=== PATIENT | female | born 1990 | race Two or more races ===

== ENCOUNTER 2018-10-16 19:17 | Emergency (ER) | payer MEDICAID, OTHER ==
[~2018-10-16] VITALS: Ht 162.6 cm; Wt 62.1 kg
[2018-10-16 19:35] VITALS: BP 118/73
--- NOTE | 2018-10-16 20:02 | Emergency Room Report ---
History of Present Illness General Chief Complaint: Fever Source: Patient Present Illness HPI 28 -year-old female presents to the emergency department complaining of 8 out of 10 severity body- aches, fatigue, fevers, chills, sore throat, nasal congestion and cough 3 days. Patient measured temperature at home at 103 which responded well to Motrin. Patient reports she took Motrin prior to arrival. Patient denies recent travel or ill contacts she also denies receiving the flu vaccination. Denies ear pain, neck pain/stiffness, irritability, photophobia dehydration, N/V/D. Denies Cp, Palpitations, LOC, AMS , seizures, paresthesias, or changes in Hearing or vision, no Sudden severe GREENE. Denies hx of smoking, asthma or COPD. Denies . Allergies: Coded Allergies: No Known Allergies (Unverified , 10/16/18) Patient History Past Medical History: see triage record Past Surgical History: none Pertinent Family History: none Now: No - Pt has IUD Reviewed Nursing Documentation: PMH: Agreed; PSxH: Agreed Nursing Documentation-PMH Past Medical History: No Stated History Review of Systems All Other Systems: negative except mentioned in HPI Physical Exam Vital Signs Date Time Temp Pulse Resp B/P (MAP) Pulse Ox O2 Delivery O2 Flow Rate FiO2 10/16/18 19:24 98.8 107 18 118/73 98 Room Air Sp02 EP Interpretation: reviewed, normal General Appearance: no apparent distress, alert, GCS 15, non-toxic Head: normocephalic, atraumatic Eyes: bilateral eye normal inspection, bilateral eye PERRL ENT: hearing grossly normal, normal voice, TMs + canals normal, uvula midline, moist mucus membranes, nasal congestion, pharyngeal erythema Neck: full range of motion, no meningismus, no bony tend Respiratory: chest non-tender, lungs clear, normal breath sounds, no respiratory distress, no accessory muscle use, no wheezing, speaking full sentences Cardiovascular #1: regular rate, rhythm Gastrointestinal: non tender, soft Rectal: deferred Genitourinary: normal inspection, no CVA tenderness Musculoskeletal: back normal, gait/station normal, normal range of motion, non- tender Neurologic: alert, oriented x3, responsive, motor strength/tone normal, sensory intact, speech normal, grossly normal Psychiatric: judgement/insight normal Skin: normal color, no rash, warm/dry, well hydrated Lymphatic: no adenopathy Medical Decision Making PA Attestation Dr. Felipe is my supervising Physician whom patient management has been discussed with. Diagnostic Impression: Primary Impression: Acute viral syndrome ER Course 28 -year-old female presents to the emergency department complaining of 8 out of 10 severity body- aches, fatigue, fevers, chills, sore throat, nasal congestion and cough 3 days. Patient measured temperature at home at 103 which responded well to Motrin. Patient reports she took Motrin prior to arrival. Patient denies recent travel or ill contacts she also denies receiving the flu vaccination. Denies ear pain, neck pain/stiffness, irritability, photophobia dehydration, N/V/D. Denies Cp, Palpitations, LOC, AMS , seizures, paresthesias, or changes in Hearing or vision, no Sudden severe GREENE. Denies hx of smoking, asthma or COPD. Denies . Ddx considered but are not limited to URI, pneumonia, PE, strep pharyngitis, meningitis, influenza, OM/OE just to name a few. Vital signs: Pt. is afebrile, the remaining VS are WNL H&PE are most consistent with Viral Syndrome suspicious for Influenza will treat clinically - no meningeal signs, Lungs are clear and oropharynx is not involved, no evidence of bacterial infection at this time. ORDERS: none required at this time, the diagnosis is clinical ED INTERVENTIONS: None required at this time. --PT. EDUCATION: --I discussed with this patient that I will be prescribing Tamiflu which is an antiviral. This medication is not always covered by insurance and is not always available at pharmacies. I educated patient that this medication has been shown to reduce symptoms by 1 day, and if unable to obtain there is no alternative, and to continue conservative treatment. DISCHARGE: At this time pt. is stable for d/c to home. Will provide printed patient care instructions, and any necessary prescriptions. Care plan and follow up instructions have been discussed with the patient prior to discharge. Last Vital Signs Date Time Temp Pulse Resp B/P (MAP) Pulse Ox O2 Delivery O2 Flow Rate FiO2 10/16/18 19:35 107 18 Room Air 10/16/18 19:35 98.8 118/73 98 Disposition: HOME, SELF-CARE Condition: Stable Scripts Pseudoephedrine Hcl* (NEXAFED*) 30 Mg Tablet 30 MG ORAL Q6H PRN for congestion, #15 TAB Prov: Purnima Bennett 10/16/18 Naproxen* (NAPROXEN*) 500 Mg Tablet 500 MG ORAL TWICE A DAY for 7 Days, #14 TAB Prov: Purnima Bennett 10/16/18 Oseltamivir Phosphate (Tamiflu) 75 Mg Capsule 75 MG ORAL DAILY, #5 CAP Prov: Purnima Bennett 10/16/18 Codeine/Promethazine Hcl* (PROMETHAZINE-CODEINE SYRUP*) 118 Ml Syrup 5 ML ORAL Q6H PRN for For Cough for 120 Days, ML 0 Refills Prov: Purnima Bennett 10/16/18 Patient Instructions: Influenza, Adult, [id number] Additional Instructions: Take medications as directed. Follow up with a Primary Care Provider in 3-5 days, even if your symptoms have resolved. --Please review list of primary care clinics, if you do not already have a primary care provider Return sooner to ED if new symptoms occur, or current symptoms become worse. Do not drink alcohol, drive, or operate heavy machinery while taking Cough Syrup as this may cause drowsiness. - Please note that this Emergency Department Report was dictated using [employer] estimator technology software, occasionally this can lead to erroneous entry secondary to interpretation by the dictation equipment. Purnima Bennett Oct 16, 2018 20:02
[2018-10-16] MEDS ORDERED: PROMETHAZINE-C118 M1 ORAL (20:05)
[2018-10-16] MEDS ORDERED: TAMIFLU75 MG ORAL (20:05)
[2018-10-16] MEDS ORDERED: NEXAFED30 MG ORAL (20:05)
[2018-10-16] MEDS ORDERED: NAPROXEN500 M2 ORAL (20:05)
[2018-10-16 20:10] VITALS: BP 118/73
== END 2018-10-16 20:10 | disposition home or self-care (01) ==
LOC: EMR 19:58
DX: B34.9 Viral infection, unspecified (principal)
CPT/HCPCS: 99282

== ENCOUNTER 2019-09-10 21:35 | Emergency (ER) | payer OTHER ==
[~2019-09-10] VITALS: Ht 162.6 cm; Wt 61.2 kg
[~2019-09-10 21:35] MED LIST: NAPROXEN500 M2 ORAL; NEXAFED30 MG ORAL; PROMETHAZINE-C118 M1 ORAL; TAMIFLU75 MG ORAL
--- NOTE | 2019-09-10 21:51 | NUR ---
ED Nurse Note: pt walked in c/o chest and upper back pain, pt states she has been sick for past three wks with coughing and hasn't been going away. pt denies fever nor sob at this time. LS=clear, no sx resp distress, noted pt with occasional dry cough, will cont monitor.
[2019-09-10 21:53] VITALS: BP 128/80
--- NOTE | 2019-09-10 22:21 | Emergency Room Report ---
History of Present Illness General Chief Complaint: Upper Respiratory Illness Source: Patient Present Illness HPI Disclaimer: Please note that this report is being documented using [employer] technology. This can lead to erroneous entry secondary to incorrect interpretation by the dictating instrument. HPI: 29-year-old female with no reported medical history presents for evaluation of chest discomfort. Patient states she has been experiencing an aching chest and a sore back for the past 3 weeks. She had an respiratory illness complaining of nasal congestion, sore throat, cough and fever which resolved approximately 2 weeks ago. The aching and congestion in her chest and back have remained. Worse with bending and twisting motions. Localized over the sternum and is nonradiating. Cough is improving. Denies shortness of breath. Denies abdominal pain, vomiting, fever. Symptoms were improving over a few days however she went out skiing in the snow today and states the cold made her symptoms return. She wanted to get evaluated to make sure nothing more serious was going on. Denies any significant medical history. Has not taken any medication for these aches and pains. No trauma reported. PMH: Denies PSH: Denies Allergies: Denies Social Hx: Denies tobacco use Allergies: Coded Allergies: No Known Allergies (Unverified , 10/16/18) Patient History Last Menstrual Period: 08/2019 Nursing Documentation-PMH Past Medical History: No Stated History Review of Systems All Other Systems: negative except mentioned in HPI Physical Exam Vital Signs Date Time Temp Pulse Resp B/P (MAP) Pulse Ox O2 Delivery O2 Flow Rate FiO2 09/10/19 21:37 98.2 95 16 128/80 (96) 97 Room Air General: Awake and alert, no acute distress HEENT: NC/AT. EOMI. Chest Wall: Tender to palpation over the sternum without deformity or crepitus. Cardiovascular: RRR. S1 and S2 normal. No murmur appreciated Resp: Normal work of breathing. No cough, wheezing or crackles appreciated MSK: Normal tone and bulk. Moving all extremities. No obvious deformity. Neuro: Awake and alert. Mentating appropriately. Back/Spine: No midline tenderness in the cervical, thoracic or lumbosacral spine. There is bilateral tenderness over the paraspinal muscles in the cervical and thoracic spine as well as tenderness to palpation over the trapezius without obvious trigger point. Medical Decision Making Diagnostic Impression: Primary Impression: Chest wall pain Additional Impression: Costochondritis ER Course 29-year-old female presents for evaluation of chest and back pain. She arrives with stable vital signs, no acute distress and is well-appearing. Differential includes was not limited to musculoskeletal pain, costochondritis, muscle spasm , pleurisy, pneumonia, angina, ACS. Likely, this is a costochondritis given her recent URI symptoms. The pain is reproducible and given its long duration I have little suspicion for cardiac causes of chest pain however will obtain a screening EKG and a chest x-ray. Patient will be given Motrin. Can advance work-up as needed based on EKG and x-ray findings. EKG Diagnostic Results EKG Time: 22:06 Rate: tachycardiac Rhythm: NSR ST Segments: no acute changes Other Impression Sinus tachycardia with a rate of 103 bpm. Normal axis, normal intervals, no ST segment changes. Rhythm Strip Diag. Results Rhythm Strip Time: 22:06 EP Interpretation: yes Rate: 2206 Rhythm: no PVC's, no ectopy Chest X-Ray Diagnostic Results Chest X-Ray Diagnostic Results : Chest X-Ray Ordered: Yes # of Views/Limited/Complete: 1 View Indication: Chest Pain EP Interpretation: Yes Interpretation: no consolidation, no effusion, no acute cardiopulmonary disease Impression: No acute disease Electronically Signed by: Electronically signed by Dr. Danyel Aburto Reevaluation Time: 22:27 Last Vital Signs Date Time Temp Pulse Resp B/P (MAP) Pulse Ox O2 Delivery O2 Flow Rate FiO2 09/10/19 21:53 98.2 95 16 128/80 97 Room Air Reevaluation Impression EKG unremarkable aside from mild tachycardia though patient has a normal heart rate on exam. The patient is in no distress. Chest x-ray does not show evidence of pneumonia, pneumothorax or other pathology. Cardiac silhouette is within normal limits. Believe this is likely costochondritis or other musculoskeletal pain. Do not believe she requires further work-up in the emergency department at this time. She will be discharged on Motrin and follow- up with her PMD. Discussed reasons to return to the emergency department. She understands and agrees with the treatment plan. Disposition: HOME, SELF-CARE Condition: Stable Scripts Acetaminophen* (ACETAMINOPHEN 325MG TABLET*) 325 Mg Tablet 650 MG ORAL Q6H PRN for For Pain for 5 Days, #30 TAB Prov: Danyel Aburto MD 09/10/19 Ibuprofen* (MOTRIN*) 600 Mg Tablet 600 MG ORAL Q8H PRN for For Pain, #30 TAB 0 Refills Prov: Danyel Aburto MD 09/10/19 Danyel Aburto MD Sep 10, 2019 22:21
[2019-09-10] MEDS ORDERED: IBUPROFEN600 MG ORAL (22:32)
[2019-09-10] MEDS ORDERED: ACETAMINOPHEN325 M1 ORAL (22:32)
--- NOTE | 2019-09-10 22:39 | NUR ---
ED Nurse Note: pt is cleared to d/c per ERMD, pt discharge and aftercare instructions w/ prescription sent via electronically, pt education done via discussion and handout, pt advised to follow up with pcp or return to ed if changes in condition, vss, ambulatory w/ steady gait, left w/ all belongings
[2019-09-10 22:40] VITALS: BP 128/80
--- NOTE | 2019-09-11 11:14 | Diagnostic Imaging Report ---
Indication: Chest pain Technique: One view of the chest Comparison: none Findings: There is a calcified granuloma in the left upper lung. Lungs and pleural spaces are otherwise clear. The heart size is normal Impression: No acute process Old granulomatous disease
== END 2019-09-10 22:40 | disposition home or self-care (01) ==
LOC: EMR 22:26
DX: R07.9 Chest pain, unspecified (principal); M94.0 Chondrocostal junction syndrome [Tietze]; R00.0 Tachycardia, unspecified
CPT/HCPCS: 71045; 93005; Z7502; 99283